=== PATIENT | male | born 1995 | race African-American/Black ===

== ENCOUNTER 2017-06-01 07:47 | Emergency (ER) | payer OTHER ==
[2017-06-01] MEDS ORDERED: ONDANSETRON HCL INJ/PF 4 MG/2 ML SDV IV ONE (08:12)
--- NOTE | 2017-06-01 08:19 | ER Document Report ---
ED General - General Chief Complaint: Nausea/Vomiting Stated Complaint: WEAKNESS Time Seen by Provider: 06/01/17 08:03 TRAVEL OUTSIDE OF THE [place] IN LAST 30 DAYS: No - HPI Notes: Patient is a 21-year-old male with no significant past medical history presents the ED complaining of nausea, vomiting, abdominal pain x2-3 days. Pt states that he the n/v occurs a few times per day. He is still able to eat, but food does make his sx's worse at times. The abd pain is to his RUQ and will radiate towards his back. Pain is described as sharp and occ cramping. Pt states that he has had 1-2 loose stools. He is still urinating normal per patient. Pt has not had any surgeries to his abdomen. He has been using some otc meds with minimal relief. Pt not aware of any new foods/substances that he ate/drank. + smoking. Denies drug or excessive etoh intake. Denies any headache, fever, neck pain, URI, sore throat, chest pain, palpitations, syncope, cough, shortness of breath, wheeze, dyspnea, urinary retention, dysuria, hematuria, melena/hematochezia/hematemesis, acholic stool, or rash. - Related Data Allergies/Adverse Reactions: shellfish derived Allergy (Severe, Verified 06/01/17 07:51) Dyspnea acetaminophen [From Vicodin] Allergy (Verified 06/01/17 07:51) hydrocodone [From Vicodin] Allergy (Verified 06/01/17 07:51) Past Medical History - General Information source: Patient - Social History Smoking Status: Current Every Day Smoker Family History: Reviewed & Not Pertinent Neurological Medical History: Reports: Hx Seizures Renal/ Medical History: Denies: Hx Peritoneal Dialysis - Immunizations Immunizations up to date: Yes Hx Diphtheria, Pertussis, Tetanus Vaccination: Yes - unknown Review of Systems - Review of Systems Notes: REVIEW OF SYSTEMS: CONSTITUTIONAL : Denies fever, chills, or sweats. Denies recent illness. EENT: Denies eye, ear, throat, or mouth pain or symptoms. Denies nasal or sinus congestion or discharge. Denies throat, tongue, or mouth swelling or difficulty swallowing. CARDIOVASCULAR: Denies chest pain. Denies palpitations or racing or irregular heart beat. Denies ankle edema. RESPIRATORY: Denies cough, cold, or chest congestion. Denies shortness of breath, difficulty breathing, or wheezing. GASTROINTESTINAL: see hpi GENITOURINARY: Denies difficulty urinating, painful urination, burning, frequency, blood in urine, or discharge. MUSCULOSKELETAL: Denies back or neck pain or stiffness. Denies joint pain or swelling. SKIN: Denies rash, lesions or sores. NEUROLOGICAL: Denies confusion or altered mental status. Denies passing out or loss of consciousness. Denies dizziness or lightheadedness. Denies headache. Denies weakness or paralysis or loss of use of either side. Denies problems with gait or speech. Denies sensory loss, numbness, or tingling. ALL OTHER SYSTEMS REVIEWED AND NEGATIVE. Dictation was performed using [employer] voice recognition software Physical Exam - Vital signs Vitals: Temp Pulse Resp BP Pulse Ox 98.1 F 66 16 121/72 100 06/01/17 07:51 06/01/17 07:51 06/01/17 07:51 06/01/17 07:51 06/01/17 07:51 Notes: PHYSICAL EXAMINATION: GENERAL: Well-appearing, well-nourished and in no acute distress. EYES: Pupils equal round and reactive to light, extraocular movements intact, sclera anicteric, conjunctiva are normal. ENT: Nares patent and without discharge. oropharynx clear without exudates. No tonsilar hypertrophy or erythema. Moist mucous membranes. No sinus tenderness. NECK: Normal range of motion, supple without lymphadenopathy. No rigidity/ meningismus. LUNGS: Breath sounds clear to auscultation bilaterally and equal. No wheezes rales or rhonchi. HEART: Regular rate and rhythm without murmurs, rubs, gallops. ABDOMEN: Soft, nondistended abdomen. No masses appreciated. Normal bowel sounds present. No CVA tenderness bilaterally. + tenderness to the RUQ/Curtis sign. + mild rebound and guarding for the RUQ. No obvious hernia, abrasion, laceration, or any ascites noted. : no lesions, ulcerations, or masses noted. No discharge. Non-tender. No hernia. Musculoskeletal: LE's b/l: FROM to passive/active. Strength 5+/5. Extremities: No cyanosis, clubbing, or edema b/l. Peripheral pulses 2+. Capillary refill less than 3 seconds. NEUROLOGICAL: Cranial nerves grossly intact. Normal speech, normal gait. Normal sensory, motor exams PSYCH: Normal mood, normal affect. SKIN: Warm, Dry, normal turgor, no rashes or lesions noted. Course - Re-evaluation Re-evalutation: 06/01/17 13:23 Patient is an afebrile, well-hydrated, 22-year-old male who presents the ED with nausea, vomiting, chlamydia/gonorrhea. Vitals are stable. PE otherwise unremarkable. CBC, CMP, lipase are unremarkable for acute pathology. Urinalysis showed some bacteria and urinary Chlamydia/gonorrhea was positive. An ultrasound of the right upper quadrant did show a possible stone in the neck of the gallbladder which patient will have evaluated as an outpatient (with gen surg) as there is no acute cholecystitis/infection. Zithromax 1 g given p.o. today along with Rocephin 250 mg. Zofran, toradol, and fluids were also given. Pt tolerating PO intake. Patient advised to continue follow-up with the health department. Conservative measures otherwise for symptoms. Safe sexual practices reviewed. Recheck with your PCM this week. Return to the ED with any worsening/concerning symptoms otherwise as reviewed discharge. Patient is in agreement. Low suspicion/risk for acute appendicitis, bowel obstruction, acute cholecystitis, perforated diverticulitis, incarcerated hernia, pancreatitis, perforated ulcer, peritonitis, sepsis, testicular torsion, or other systemic emergent condition at this time. Patient is aware that his condition can change from initial presentation and he needs to monitor symptoms closely and seek medical attention if any acute changes. - Vital Signs Vital signs: Temp Pulse Resp BP Pulse Ox 97.5 F 54 L 16 127/63 H 100 06/01/17 10:59 06/01/17 10:59 06/01/17 07:51 06/01/17 10:59 06/01/17 10:59 - Laboratory Result Diagrams: 06/01/17 08:44 06/01/17 09:24 Laboratory results interpreted by me: 06/01/17 06/01/17 06/01/17 08:44 08:45 11:00 RBC 5.70 H RDW 14.2 H Ur Leukocyte Esterase SMALL H Chlamydia DNA (PCR) DETECTED H N.gonorrhoeae DNA (PCR) DETECTED H Discharge - Discharge Clinical Impression: Chlamydia, Gonorrhea, Gallbladder stone with nonacute cholecystitis Nausea & vomiting Qualifiers: Vomiting type: unspecified Vomiting Intractability: non-intractable Qualified Code(s): R11.2 - Nausea with vomiting, unspecified Condition: Stable Disposition: HOME, SELF-CARE Instructions: Chlamydia ([facility]), Gallbladder Disease ([facility]), Gonorrhea ([facility]), Low- Fat Diet ([facility]), Intravenous (IV) Fluids ([facility]), Azithromycin ([facility]) Additional Instructions: Push fluids (i.e. water, cranberry juice) Proper hygenic technique Keep the skin clean Safe sexual practices with condoms everytime Tylenol/ibuprofen as needed May use over the counter AZO for burning with urination Check in with the health department this week for further testing* Return immediately if symptoms worsen F/u with your PCM this week for a recheck Schedule a consult with the General Surgeon for further evaluation of your suspected gallbladder stone Consider consult with a Urologist for ongoing/worsening symptoms. Return to the ED with any development of RICHARDSON/fever, trouble with vision, eye redness, worsening pain, urethral discharge, urinary retention, blood in the urine, flank pain, abdominal pain, n/v, blood in stool/vomit/urine, Chest Pain, shortness of breath, joint pains, trouble breathing, or any other worsening/ concerning symptoms as needed otherwise. Prescriptions: Ondansetron [Zofran Odt 4 mg Tablet] 1 - 2 tab PO Q4H PRN #15 tab.rapdis PRN Reason: For Nausea/Vomiting Forms: Elevated Blood Pressure Referrals: JEIMY KINCAID MD [ACTIVE STAFF] - Follow up as needed [facility] [Provider Group] - Follow up as needed [facility] [NO LOCAL MD] - Follow up in 3-5 days
--- NOTE | 2017-06-01 08:44 | RADIOLOGY REPORT (SQ) ---
EXAM DESCRIPTION: CHEST PA/LAT COMPLETED DATE/TIME: 06/01/2017 8:27 am REASON FOR STUDY: RUQ abdominal pain, n/v COMPARISON: 2015. TECHNIQUE: Frontal and lateral radiographic views of the chest acquired. NUMBER OF VIEWS: Two view. LIMITATIONS: None. FINDINGS: LUNGS AND PLEURA: No opacities, masses or pneumothorax. No pleural effusion. MEDIASTINUM AND HILAR STRUCTURES: No masses or contour abnormalities. HEART AND VASCULAR STRUCTURES: Heart normal size. No evidence for failure. BONES: No acute findings. HARDWARE: None in the chest. OTHER: No other significant finding. IMPRESSION: NO SIGNIFICANT RADIOGRAPHIC FINDING IN THE CHEST. TECHNICAL DOCUMENTATION: JOB ID: [id number] [employer]- All Rights Reserved
[2017-06-01] MEDS: NORMAL SALINE 1000 ML 1,000 ML IV PRN ×2 (08:48→10:18)
[2017-06-01 08:55] LABS: ABSOLUTE BASOPHILS # (AUTO) 0.1 10^3/uL (0.0-0.2); ABSOLUTE EOSINOPHILS # (AUTO) 0.4 10^3/uL (0.0-0.6); ABSOLUTE LYMPHOCYTES (AUTO) 1.5 10^3/uL (0.5-4.7); ABSOLUTE MONOCYTES (AUTO) 0.8 10^3/uL (0.1-1.4); ABSOLUTE NEUT (AUTO) 5.2 10^3/uL (1.7-8.2); BASOPHILS % (AUTO) 1.1 % (0-2); HEMATOCRIT 49.2 % (37.9-51.0); HEMOGLOBIN 16.4 g/dL (13.5-17.0); LYMPHOCYTES % (AUTO) 18.8 % (13-45); MEAN CORPUSCULAR HEMOGLOBIN 28.8 pg (27.0-33.4); MEAN CORPUSCULAR HGB CONC 33.4 g/dL (32.0-36.0); MEAN CORPUSCULAR VOLUME 86 fl (80-97); MONOCYTES % (AUTO) 10.5 % (3-13); RED CELL DISTRIBUTION WIDTH 14.2 % (11.5-14.0); SEGMENTED NEUTROPHILS % (AUTO) 64.6 % (42-78)
[2017-06-01 09:36] LABS: APPEARANCE,URINE CLEAR; BILIRUBIN,URINE NEGATIVE (NEGATIVE); GLUCOSE, URINE NEGATIVE (NEGATIVE); KETONES,URINE NEGATIVE (NEGATIVE); LEUKOCYTE ESTERASE,URINE SMALL (NEGATIVE); NITRITE,URINE NEGATIVE (NEGATIVE); PROTEIN,URINE NEGATIVE (NEGATIVE); URINE SPECIFIC GRAVITY 1.014; UROBILINOGEN,URINE NEGATIVE mg/dL (<2.0)
[2017-06-01 09:57] LABS: ALANINE AMINOTRANSFERASE 23 U/L (21-72); ALBUMIN 3.8 g/dL (3.5-5.0); ALKALINE PHOSPHATASE 50 U/L (38-126); ANION GAP 8 (5-19); ASPARTATE AMINO TRANSFERASE 25 U/L (17-59); BILIRUBIN,DIRECT 0.3 mg/dL (0.0-0.4); BILIRUBIN,TOTAL 0.9 mg/dL (0.2-1.3); BLOOD UREA NITROGEN 11 mg/dL (7-20); CALCIUM 9.4 mg/dL (8.4-10.2); CARBON DIOXIDE 26 mmol/L (22-30); CHLORIDE 107 mmol/L (98-107); CREATININE RESULT 0.97 mg/dL (0.52-1.25); GLUCOSE 90 mg/dL (75-110); LIPASE 176.4 U/L (23-300); POTASSIUM 4.5 mmol/L (3.6-5.0); SODIUM 141.1 mmol/L (137-145); TOTAL PROTEIN 6.5 g/dL (6.3-8.2)
--- NOTE | 2017-06-01 10:24 | RADIOLOGY REPORT (SQ) ---
EXAM DESCRIPTION: U/S ABDOMEN LIMITED W/O DOP COMPLETED DATE/TIME: 06/01/2017 9:56 am REASON FOR STUDY: RUQ abdominal pain, n/v COMPARISON: None. TECHNIQUE: Dynamic and static grayscale images acquired of the abdomen and recorded on PACS. Additio nal selected color Doppler and spectral images recorded. LIMITATIONS: None. FINDINGS: PANCREAS: No masses. Visualized pancreatic duct normal caliber. LIVER: No masses. Echotexture normal. LIVER VASCULATURE: Normal directional flow of the main portal vein and hepatic veins. GALLBLADDER: Echogenic shadowing focus near the neck of the gallbladder may represent a stone. No wa ll thickening or surrounding fluid, however. ULTRASOUND-DETECTED MCINTYRE'S SIGN: Negative. INTRAHEPATIC DUCTS AND COMMON DUCT: CBD and intrahepatic ducts normal caliber. No filling defects. INFERIOR VENA CAVA: Normal flow. AORTA: No aneurysm. RIGHT KIDNEY: Normal size. Normal echogenicity. No solid or suspicious masses. No hydronephrosis. No calcifications. PERITONEAL AND RIGHT PLEURAL SPACE: No ascites or effusions. OTHER: No other significant findings. IMPRESSION: 1. Possible stone in the gallbladder neck. No gross sonographic evidence of acute donald cystitis, however. TECHNICAL DOCUMENTATION: JOB ID: [id number] [employer]- All Rights Reserved
[2017-06-01] MEDS ORDERED: KETOROLAC TROMETHAMINE INJ/PF 30 MG/1 ML SDV IV ONE (10:41)
[2017-06-01] MEDS ORDERED: AZITHROMYCIN 250 MG TABLET PO ONE (12:35)
[2017-06-01] MEDS ORDERED: CEFTRIAXONE INJ 1000 MG VIAL IV ONE (12:35)
[2017-06-01 12:51] LABS: CHLAM PCR DETECTED (NOT DETECT)
[2017-06-01 14:00] VITALS: BP 121/74
== END 2017-06-01 14:08 | disposition home or self-care (01) ==
LOC: ER 07:47
DX: A74.9 Chlamydial infection, unspecified (principal); A54.9 Gonococcal infection, unspecified; K80.18 Calculus of gallbladder with other cholecystitis without obstruction; R11.2 Nausea with vomiting, unspecified; R53.1 Weakness; R10.9 Unspecified abdominal pain; R10.11 Right upper quadrant pain; F17.200 Nicotine dependence, unspecified, uncomplicated; Z88.6 Allergy status to analgesic agent; Z91.013 Allergy to seafood
CPT/HCPCS: 99284; 96361; 96375; 96365; 36415; 83690; 85025; 80053; 81001; 87491; 87591; 71020; 76705; J1885; J0696; J2405; J7030

== ENCOUNTER 2018-03-12 07:01 | Emergency (ER) | payer OTHER ==
[2018-03-12 07:13] VITALS: BP 117/70
--- NOTE | 2018-03-12 08:37 | ER Document Report ---
HPI - HPI Patient complains to provider of: asthma Onset: Other - 4 days ago Onset/Duration: Gone Quality of pain: No pain Pain Level: Denies Context: Patient states he has a history of asthma and recently started working in a different location at the same job. Patient states that his work causes his asthma to flare up and he become symptomatic. Patient states that his employer is requesting a note stating that he needs to stop working because of his asthma symptoms. Patient presently denies any cough, wheezing or shortness of breath. Patient denies any fever. Patient states he last had symptoms 4 days ago. Associated Symptoms: None. denies: Nonproductive cough, Fever Exacerbated by: Denies Relieved by: Denies Similar symptoms previously: Yes Recently seen / treated by doctor: No - ROS ROS below otherwise negative: Yes Systems Reviewed and Negative: Yes All other systems reviewed and negative - CONSTITUTIONAL Constitutional: DENIES: Fever, Chills - CARDIOVASCULAR Cardiovascular: DENIES: Chest pain - RESPIRATORY Respiratory: DENIES: Coughing - GASTROINTESTINAL Gastrointestinal: DENIES: Nausea, Patient vomiting - MUSCULOSKELETAL Musculoskeletal: DENIES: Extremity pain - DERM Skin Color: Normal Skin Problems: None Past Medical History - General Information source: Patient - Social History Smoking Status: Current Some Day Smoker Chew tobacco use (# tins/day): No Frequency of alcohol use: None Drug Abuse: None Occupation: Housekeeping Family History: Reviewed & Not Pertinent Patient has suicidal ideation: No Patient has homicidal ideation: No Pulmonary Medical History: Reports: Hx Asthma Neurological Medical History: Reports: Hx Seizures - no medications Renal/ Medical History: Denies: Hx Peritoneal Dialysis Surgical Hx: Negative - Immunizations Immunizations up to date: Yes Hx Diphtheria, Pertussis, Tetanus Vaccination: Yes - unknown Vertical Provider Document - CONSTITUTIONAL Agree With Documented VS: Yes Exam Limitations: No Limitations General Appearance: WD/WN, No Apparent Distress - INFECTION CONTROL TRAVEL OUTSIDE OF THE [place] IN LAST 30 DAYS: No - HEENT HEENT: Atraumatic, Normal ENT Exam, Normocephalic - NECK Neck: Normal Inspection, Supple - RESPIRATORY Respiratory: Breath Sounds Normal, No Respiratory Distress, Chest Non-Tender. negative: Rales, Rhonchi, Wheezing - CARDIOVASCULAR Cardiovascular: Regular Rate, Regular Rhythm, No Murmur - BACK Back: Normal Inspection - MUSCULOSKELETAL/EXTREMETIES Musculoskeletal/Extremeties: MAEW - NEURO Level of Consciousness: Awake, Alert, Appropriate Motor/Sensory: No Motor Deficit - DERM Integumentary: Warm, Dry, No Rash Course - Vital Signs Vital signs: Temp Pulse Resp BP Pulse Ox 97.2 F 63 18 117/70 99 03/12/18 07:09 03/12/18 07:09 03/12/18 07:09 03/12/18 07:09 03/12/18 07:09 Discharge - Discharge Clinical Impression: History of asthma Condition: Stable Disposition: HOME, SELF-CARE Instructions: Asthma ([facility]), Inhaled Bronchodilators ([facility]) Additional Instructions: Return immediately for any new or worsening symptoms Followup with your primary care provider, call tomorrow to make a followup appointment Avoid triggers that may aggravate your asthma Stop smoking Prescriptions: Albuterol Sulfate [Ventolin Hfa] 2 puff IH Q4HP PRN #17 gm PRN Reason: Albuterol Sulfate [Ventolin 0.083% Neb 2.5 mg/3 ml Ampul] 1 vial NEB Q4 PRN #25 vial PRN Reason: Forms: Smoking Cessation Education, Return to Work Referrals: [facility] [Provider Group] - Follow up as needed
== END 2018-03-12 08:47 | disposition home or self-care (01) ==
LOC: ER 07:01
DX: J45.909 Unspecified asthma, uncomplicated (principal); F17.200 Nicotine dependence, unspecified, uncomplicated
CPT/HCPCS: 99284

== ENCOUNTER 2018-11-04 08:32 | Emergency (ER) | payer OTHER ==
[2018-11-04] MEDS ORDERED: KETOROLAC TROMETHAMINE INJ/PF 30 MG/1 ML SDV IV ONE (09:42)
[2018-11-04] MEDS ORDERED: FENTANYL CITRATE INJ/PF 100 MCG/2 ML AMPUL IV ONE (09:42)
[2018-11-04] MEDS ORDERED: NORMAL SALINE 1000 ML 1,000 ML IV ONE (09:42)
[2018-11-04] MEDS ORDERED: PROCHLORPERAZINE EDISYLATE INJ 10 MG/2 ML VIAL IV ONE (09:44)
--- NOTE | 2018-11-04 09:45 | ER Document Report ---
ED Medical Screen (RME) - General Chief Complaint: Abdominal Pain Stated Complaint: ABDOMINAL PAIN Time Seen by Provider: 11/04/18 09:37 Notes: 23 years old male with history of chronic abdominal pain with periodic exacerbation of unknown cause presents today with sudden onset of abdominal pain since yesterday. Gradually getting worse over the left lower quadrant. Associated with nausea no vomiting. Denies any diarrhea or constipation. Denies any dysuria frequency or urgency. On examination-clean male seems to be in moderate to severe pain. Sharp tenderness over the left side of the abdomen noted. TRAVEL OUTSIDE OF THE [place] IN LAST 30 DAYS: No - Related Data Allergies/Adverse Reactions: shellfish derived Allergy (Severe, Verified 11/04/18 08:34) Dyspnea acetaminophen [From Vicodin] Allergy (Verified 11/04/18 08:34) hydrocodone [From Vicodin] Allergy (Verified 11/04/18 08:34) Past Medical History - Social History Chew tobacco use (# tins/day): No Drug Abuse: None Pulmonary Medical History: Reports: Hx Asthma Neurological Medical History: Reports: Hx Seizures - no medications Renal/ Medical History: Denies: Hx Peritoneal Dialysis - Immunizations Immunizations up to date: Yes Hx Diphtheria, Pertussis, Tetanus Vaccination: Yes - unknown Physical Exam - Vital signs Vitals: Temp Pulse Resp BP Pulse Ox 97.2 F 102 H 20 135/75 H 100 11/04/18 08:38 11/04/18 08:38 11/04/18 08:38 11/04/18 08:38 11/04/18 08:38 Course - Vital Signs Vital signs: Temp Pulse Resp BP Pulse Ox 97.2 F 102 H 20 135/75 H 100 11/04/18 08:38 11/04/18 08:38 11/04/18 08:38 11/04/18 08:38 11/04/18 08:38
[2018-11-04 10:25] LABS: ABSOLUTE BASOPHILS # (AUTO) 0.1 10^3/uL (0.0-0.2); ABSOLUTE EOSINOPHILS # (AUTO) 0.1 10^3/uL (0.0-0.6); ABSOLUTE LYMPHOCYTES (AUTO) 1.1 10^3/uL (0.5-4.7); ABSOLUTE MONOCYTES (AUTO) 0.6 10^3/uL (0.1-1.4); ABSOLUTE NEUT (AUTO) 6.9 10^3/uL (1.7-8.2); BASOPHILS % (AUTO) 0.7 % (0-2); EOSINOPHILS % (AUTO) 0.7 % (0-6); HEMATOCRIT 46.6 % (37.9-51.0); LYMPHOCYTES % (AUTO) 12.7 % (13-45); MEAN CORPUSCULAR HEMOGLOBIN 29.1 pg (27.0-33.4); MEAN CORPUSCULAR HGB CONC 34.3 g/dL (32.0-36.0); MEAN CORPUSCULAR VOLUME 85 fl (80-97); MONOCYTES % (AUTO) 6.8 % (3-13); PLATELET COUNT 254 10^3/uL (150-450); RED BLOOD COUNT 5.49 10^6/uL (4.35-5.55); RED CELL DISTRIBUTION WIDTH 13.5 % (11.5-14.0); SEGMENTED NEUTROPHILS % (AUTO) 79.1 % (42-78); TOTAL CELLS COUNTED % (AUTO) 100 %; WHITE BLOOD COUNT 8.8 10^3/uL (4.0-10.5)
[2018-11-04 10:44] LABS: ALANINE AMINOTRANSFERASE 34 U/L (21-72); ALBUMIN 5.2 g/dL (3.5-5.0); ALKALINE PHOSPHATASE 65 U/L (38-126); ANION GAP 12 (5-19); ASPARTATE AMINO TRANSFERASE 41 U/L (17-59); BILIRUBIN,DIRECT 0.3 mg/dL (0.0-0.4); BLOOD UREA NITROGEN 16 mg/dL (7-20); CALCIUM 10.3 mg/dL (8.4-10.2); CARBON DIOXIDE 26 mmol/L (22-30); CHLORIDE 105 mmol/L (98-107); GLUCOSE 85 mg/dL (75-110); SODIUM 143.3 mmol/L (137-145); TOTAL PROTEIN 8.6 g/dL (6.3-8.2)
[2018-11-04] MEDS ORDERED: DIPHENHYDRAMINE HCL 50 MG/ML VIAL ONE (10:48)
[2018-11-04] MEDS ORDERED: DIPHENHYDRAMINE HCL 50 MG/ML VIAL IV ONE ×2 (10:51)
--- NOTE | 2018-11-04 11:01 | ER Document Report ---
ED GI/ - General Chief Complaint: Abdominal Pain Stated Complaint: ABDOMINAL PAIN Time Seen by Provider: 11/04/18 09:37 Notes: She is here for pain in the left upper quadrant of his abdomen since yesterday. He has had this about 3 times in the recent past, most recently about 2 weeks ago. He says he was told he had kidney stones on previous occasions. Patient says he vomited a couple of times yesterday, but today he denies any nausea, vomiting, or diarrhea. Denies any UTI symptoms. Denies blood in urine. Denies fever. In triage, patient was given fentanyl, Toradol, and Compazine, all IV. He is now having restlessness and cannot sit still on the stretcher. I am going to give the patient 25 mg of Benadryl IV in case this is an episode of akathisia from the Compazine or 1 of his other medications. TRAVEL OUTSIDE OF THE [place] IN LAST 30 DAYS: No - Related Data Allergies/Adverse Reactions: shellfish derived Allergy (Severe, Verified 11/04/18 08:34) Dyspnea Past Medical History - Social History Smoking Status: Never Smoker Chew tobacco use (# tins/day): No Drug Abuse: None Family History: Reviewed & Not Pertinent Patient has suicidal ideation: No Patient has homicidal ideation: No Pulmonary Medical History: Reports: Hx Asthma Neurological Medical History: Reports: Hx Seizures - no medications Surgical Hx: Negative Past Surgical History: Denies: Hx Abdominal Surgery - Immunizations Immunizations up to date: Yes Hx Diphtheria, Pertussis, Tetanus Vaccination: Yes - unknown Review of Systems - Review of Systems Notes: REVIEW OF SYSTEMS: CONSTITUTIONAL : Denies fever. EENT: Denies eye, ear, nose or mouth or throat pain or other symptoms. CARDIOVASCULAR: Denies chest pain. RESPIRATORY: Denies cough, chest congestion, or shortness of breath. GASTROINTESTINAL: Denies nausea, vomiting, or diarrhea. See HPI. GENITOURINARY: Denies difficulty or painful urinating, urinary frequency, blood in urine. See HPI. MUSCULOSKELETAL: Denies back or neck pain. Denies joint pain or swelling. SKIN: Denies rash or skin lesions. NEUROLOGICAL: Denies LOC or altered mental status. Denies headache. Denies sensory loss or motor deficits. ALL OTHER SYSTEMS REVIEWED AND NEGATIVE. Physical Exam - Vital signs Vitals: Temp Pulse Resp BP Pulse Ox 97.2 F 102 H 20 135/75 H 100 11/04/18 08:38 11/04/18 08:38 11/04/18 08:38 11/04/18 08:38 11/04/18 08:38 Interpretation: Normal Notes: PHYSICAL EXAMINATION: GENERAL: Well-appearing, in no acute distress. HEAD: Atraumatic, normocephalic. EYES: Pupils equal round and reactive to light, extraocular movements intact. ENT: oropharynx clear without exudates. Moist mucous membranes. NECK: Normal range of motion, supple. LUNGS: Breath sounds clear and equal bilaterally. HEART: Regular rate and rhythm without murmurs. ABDOMEN: Soft, nontender. No guarding or rebound. No masses. Denies recent fall or injury to his abdomen. BACK: No tenderness throughout entire back. EXTREMITIES: Normal range of motion without pain. NEUROLOGICAL: Normal speech, normal gait. Normal sensory, motor, and reflex exams. Awake, alert, and oriented x3. Cranial nerves normal. PSYCH: Normal mood, normal affect. SKIN: Warm, dry, no rashes. Course - Re-evaluation Re-evalutation: 11/04/18 14:39 Patient's workup is essentially normal. He does have ketones of 80 in his urine, but otherwise his labs are essentially normal. Also, his CT scan is normal, as well. His findings are not supportive of any serious cause for the patient's pain. Patient is anxious to leave and I am going to discharge him with a prescription for Bentyl to take as needed. - Vital Signs Vital signs: Temp Pulse Resp BP Pulse Ox 97.4 F 62 14 122/62 100 11/04/18 11:48 11/04/18 11:48 11/04/18 11:48 11/04/18 11:48 11/04/18 11:48 - Laboratory Result Diagrams: 11/04/18 09:55 11/04/18 09:55 Laboratory results interpreted by me: 11/04/18 11/04/18 11/04/18 09:55 09:55 10:38 Seg Neutrophils % 79.1 H Lymphocytes % 12.7 L Calcium 10.3 H Total Bilirubin 2.0 H Total Protein 8.6 H Albumin 5.2 H Urine Protein 30 H Urine Ketones 80 H Urine Urobilinogen 4.0 H Urine Ascorbic Acid 20 H - Diagnostic Test Radiology reviewed: Image reviewed, Reports reviewed - CT scan of the abdomen is normal. Patient had oral contrast but not IV contrast because the IV would not function properly, the patient says he may be allergic to the contrast, causing him to have arm pain when he had it done once in the past. Discharge - Discharge Clinical Impression: Abdominal pain Condition: Stable Disposition: HOME, SELF-CARE Additional Instructions: ABDOMINAL PAIN: There are many causes of abdominal pain. Pain can mean a serious problem requiring surgery (such as appendicitis). It can also be an innocent problem that goes away on its own (such as a viral infection). Often, time must pass to determine the cause of pain. The physician does not feel that hospitalization is necessary, at present. Things may change within the next 24 hours. Call the doctor or come back for re- examination if any problems occur, such as: (1) Pain that becomes more severe, steady, or becomes concentrated in one specific area. Also, pain that is more severe with movement or coughing. (2) Vomiting that persists or becomes more frequent. (3) Blood in the vomitus, urine, or bowel movements. Blood in the stool may have a tarry or black appearance. (4) Shaking chills or fever greater than 100 degrees F. (5) The abdomen becomes more distended or swollen. (6) Bowel movements cease. (7) Failure to improve as expected. NORMAL EXAM AND WORKUP: At this time, your examination and workup show no significant abnormality. No significant abnormal physical findings are noted. All laboratory, EKG, and imaging (x-ray, CT scans, ultrasound) studies that were ordered show no signific ant abnormality. Although your examination and all studies that were ordered showed no significant abnormal finding, there are no examinations and no studies that are 100% accurate. There is always the possibility that some abnormality could exist and not be detected with physical examination or within the limits and capabilities of laboratory and other studies. You should return or follow up as you were instructed on your visit today for further evaluation if your symptoms do not resolve. TORADOL INJECTION: You have been given an injection of ketorolac tromethamine (Toradol). This is an excellent, safe drug for pain control. It also has potent antiinflammatory action. You should have significant pain relief within about one hour. Toradol is not addicting and is non-sedating. It does not interfere with driving or work. Call or return if you develop itching, hives, shortness of breath, or rash. PAIN MEDICATION INJECTION: You have received an injection of a pain medication. You should experience significant pain relief within 45 minutes. This drug is a narcotic -- it will impair your judgement, slow your reaction time and make you sleepy (as well as relieve your pain). Narcotics also can cause nausea. You should not drive, work with machinery, or perform any task requiring mental alertness until all effects of the medication are gone -- six to eight hours. Do not take any alcohol, or sedatives, and do not take any other medication without checking with your physician. ANTINAUSEA MEDICATION: You have been given a medication to suppress nausea and vomiting. This type of medication can be given as a shot, pill, or suppository. It will usually last for many hours. Pills and shots usually last six to eight hours, suppositories last about 12 hours. For the typical illness, only one or two doses of the medication may be necessary. Mild lightheadedness may occur. This type of medicine can cause drowsiness. Do not drive or operate dangerous machinery while under its influence. Do not mix with alcohol. See your doctor at once if you have muscle spasms or tightness, or uncontrollable motions (particularly of the neck, mouth, or jaw). Persistent vomiting or severe lightheadedness should also be evaluated by the physician. ANTISPASMODICS: You have been given a prescription for an antispasmodic medicine. This type of drug is used to decrease cramping and pain in the intestines. It is also used to decrease secretion of internal fluids (such as stomach acid in ulcer disease or pancreatic juice in pancreas disease). This medicine may cause drowsiness, especially with the first dose. Do not operate machinery or drive until all side effects have resolved. Do not combine with alcohol. Other common side effects include dry mouth and eyes. In older persons, antispasmodics can occasionally cause urinary retention, constipation, or trouble focusing the eyes. Glaucoma may be worsened by this medicine. FOLLOW-UP CARE: If you have been referred to a physician for follow-up care, call the physicians office for an appointment as you were instructed or within the next two days. If you experience worsening or a significant change in your symptoms, notify the physician immediately or return to the Emergency Department at any time for re-evaluation. Prescriptions: Dicyclomine HCl [Bentyl 20 mg Tablet] 40 mg PO QIDP PRN #20 tablet PRN Reason:
[2018-11-04 11:35] LABS: APPEARANCE,URINE CLEAR; BILIRUBIN,URINE NEGATIVE (NEGATIVE); COLOR,URINE YELLOW; GLUCOSE, URINE NEGATIVE (NEGATIVE); KETONES,URINE 80 mg/dL (NEGATIVE); LEUKOCYTE ESTERASE,URINE NEGATIVE (NEGATIVE); NITRITE,URINE NEGATIVE (NEGATIVE); PROTEIN,URINE 30 mg/dL (NEGATIVE)
[2018-11-04 11:49] VITALS: BP 122/62
[2018-11-04 11:52] LABS: URINE AMPHETAMINES SCREEN NEGATIVE; URINE BARBITURATES SCREEN NEGATIVE; URINE BENZODIAZEPINES SCREEN NEGATIVE; URINE COCAINE SCREEN NEGATIVE; URINE MARIJUANA (THC) SCREEN UNCONFIRMED POSITIVE; URINE METHADONE SCREEN NEGATIVE; URINE PHENCYCLIDINE SCREEN NEGATIVE
--- NOTE | 2018-11-04 14:16 | RADIOLOGY REPORT (SQ) ---
EXAM DESCRIPTION: CT ABD/PELVIS ORAL ONLY COMPLETED DATE/TIME: 11/04/2018 1:42 pm REASON FOR STUDY: Acute abdominal pain rule out obstruction COMPARISON: 01/04/2013 TECHNIQUE: CT scan of the abdomen and pelvis performed without intravenous or oral contrast. Images reviewed with lung, soft tissue, and bone windows. Reconstructed coronal and sagittal MPR images revi ewed. All images stored on PACS. All CT scanners at this facility use dose modulation, iterative reconstruction, and/or weight based d osing when appropriate to reduce radiation dose to as low as reasonably achievable (ALARA). [facility]: Dose Right [facility]: CareDose [facility]: Dose Right [facility]: Teradose 4D [facility]: Smart Olo RADIATION DOSE: CT Rad equipment meets quality standard of care and radiation dose reduction techniq ues were employed. CTDIvol: 4.9 mGy. DLP: 250 mGy-cm.mGy. LIMITATIONS: None. FINDINGS: LOWER CHEST: No significant findings. No nodules or infiltrates. NON-CONTRASTED LIVER, SPLEEN, ADRENALS: Evaluation limited by lack of IV contrast. No identified sign ificant masses. PANCREAS: No masses. No peripancreatic inflammatory changes. GALLBLADDER: No identified stones by CT criteria. No inflammatory changes to suggest cholecystitis. RIGHT KIDNEY AND URETER: No suspicious masses. Assessment limited by lack of IV contrast. No signif icant calcifications. No hydronephrosis or hydroureter. LEFT KIDNEY AND URETER: No suspicious masses. Assessment limited by lack of IV contrast. No signifi cant calcifications. No hydronephrosis or hydroureter. AORTA AND RETROPERITONEUM: No aneurysm. No retroperitoneal masses or adenopathy. BOWEL AND PERITONEAL CAVITY: No obvious masses or inflammatory changes. No free fluid. APPENDIX: Normal. PELVIS, BLADDER, AND ABDOMINAL WALL:No abnormal masses. No free fluid. Bladder normal. BONES: No significant findings. OTHER: No other significant finding. IMPRESSION: No noncontrast CT findings to explain abdominal pain. No evidence of bowel obstruction following administration of oral contrast. COMMENT: Quality ID # [id number]: Final reports with documentation of one or more dose reduction techniques (e.g., Automated exposure control, adjustment of the mA and/or kV according to patient size, use of iterative reconstruction technique) TECHNICAL DOCUMENTATION: JOB ID: [id number] [employer]- All Rights Reserved Reading location - IP/workstation name: [email or web address]
== END 2018-11-04 14:58 | disposition home or self-care (01) ==
LOC: ER 08:32
DX: R10.9 Unspecified abdominal pain (principal); R11.10 Vomiting, unspecified; Z79.899 Other long term (current) drug therapy; J45.909 Unspecified asthma, uncomplicated
CPT/HCPCS: 99284; 96361; 96374; 96375; 36415; 87040; 83690; 85025; 80053; 81001; 80307; 74176; J1200; J3010; J1885; J0780; J7030

== ENCOUNTER 2019-05-18 09:05 | Emergency (ER) | payer OTHER ==
[2019-05-18] MEDS ORDERED: IBUPROFEN 600 MG TABLET PO ONE (09:48)
[2019-05-18] MEDS ORDERED: OXYCODONE-ACETAMINOPHEN 5-325 MG TABLET PO ONE (09:48)
--- NOTE | 2019-05-18 10:26 | ER Document Report ---
HPI - HPI Time Seen by Provider: 05/18/19 09:40 Pain Level: 5 Notes: Patient is an otherwise healthy 23-year-old male presented emergency department chief complaint of right foot and ankle pain. Patient reports he was working yesterday when a tractor tire up the back of his ankle causing his ankle to be crushed into concrete. He states he has not been able to bear weight since then. - CONSTITUTIONAL Constitutional: DENIES: Fever, Chills - EENT EENT: DENIES: Sore Throat, Ear Pain, Eye problems - NEURO Neurology: DENIES: Headache, Weakness, Vision blurred, Dizzinesss / Vertigo - CARDIOVASCULAR Cardiovascular: DENIES: Chest pain - RESPIRATORY Respiratory: DENIES: Trouble Breathing, Coughing - GASTROINTESTINAL Gastrointestinal: DENIES: Abdominal Pain, Black / Bloody Stools - URINARY Urinary: DENIES: Dysuria, Urgency, Frequency - MUSCULOSKELETAL Musculoskeletal: REPORTS: Extremity pain - right ankle/foot Past Medical History - General Information source: Patient - Social History Smoking Status: Current Every Day Smoker Chew tobacco use (# tins/day): No Frequency of alcohol use: None Drug Abuse: None Family History: Reviewed & Not Pertinent Patient has suicidal ideation: No Patient has homicidal ideation: No Pulmonary Medical History: Reports: Hx Asthma Neurological Medical History: Reports: Hx Seizures - no medications Renal/ Medical History: Denies: Hx Peritoneal Dialysis GI Medical History: Reports: Hx Gastroesophageal Reflux Disease Past Surgical History: Denies: Hx Abdominal Surgery - Immunizations Immunizations up to date: Yes Hx Diphtheria, Pertussis, Tetanus Vaccination: Yes - unknown Vertical Provider Document - CONSTITUTIONAL Notes: PHYSICAL EXAMINATION: GENERAL: Well-appearing, well-nourished and in no acute distress. HEAD: Atraumatic, normocephalic. EYES: Pupils equal round extraocular movements intact, conjunctiva are normal. ENT: Nares patent NECK: Normal range of motion LUNGS: No respiratory distress Musculoskeletal: Mild swelling with ecchymosis noted to right foot and ankle, cap refill less than 3 seconds, strong dorsalis pedis pulse, exquisite tenderness with any palpation over the dorsal surface of the foot as well as the lateral and medial ankle. NEUROLOGICAL: Normal speech. PSYCH: Normal mood, normal affect. SKIN: Warm, Dry, normal turgor, no rashes or lesions noted. - INFECTION CONTROL TRAVEL OUTSIDE OF THE [place] IN LAST 30 DAYS: No Course - Re-evaluation Re-evalutation: Ankle X-Ray 05/18/19 09:43 IMPRESSION: NEGATIVE STUDY OF THE RIGHT ANKLE. NO RADIOGRAPHIC EVIDENCE OF ACUTE INJURY. Foot X-Ray 05/18/19 09:43 IMPRESSION: Small ossific sliver seen on the lateral projection superior to the talus which may represent dorsal talar avulsion fracture. Recommend correlation with point tenderness. No additional evidence of acute bony abnormality. Patient placed in ankle stirrup splint, Tony wrap and crutches. Patient will follow-up with orthopedics. Patient given DC instructions as well as ED return precautions. The patient's emergency department workup and current diagnosis were explained to the patient and or family. Follow-up instructions were provided. Medications if prescribed were discussed. Instructions for when to return to the emergency department including specific worrisome symptoms were discussed with the patient and/or family. - Vital Signs Vital signs: Temp Pulse Resp BP Pulse Ox 97.6 F 78 18 139/103 H 100 05/18/19 09:12 05/18/19 09:12 05/18/19 09:12 05/18/19 09:12 05/18/19 09:12 Procedures - Immobilization Right ankle Pre-Proc Neuro Vasc Exam: Normal Immobilizer type: Tony wrap, Ankle stirrup, Crutches Performed by: PCT Post-Proc Neuro Vasc Exam: Normal Alignment checked and good: Yes Discharge - Discharge Clinical Impression: Fractured tarsal bone Qualifiers: Encounter type: initial encounter Tarsal bone: unspecified tarsal bone Fracture type: closed Fracture alignment: nondisplaced Laterality: right Qualified Code(s): S92.201A - Fracture of unspecified tarsal bone(s) of right foot, init ial encounter for closed fracture Condition: Stable Disposition: HOME, SELF-CARE Additional Instructions: It appears that you have a fracture of the tarsal bone. Please take ibuprofen 600 mg every 6 hours. Take the narcotic pain medication for severe pain only. Ice and elevate, 20 minutes on, 20 minutes off. Follow-up with orthopedics, call them today to schedule an appointment. Use the crutches and maintain a nonweightbearing status until cleared by orthopedics. Prescriptions: Oxycodone HCl/Acetaminophen [Percocet 5-325 mg Tablet] 1 tab PO Q4H PRN #12 tablet PRN Reason: Forms: Special Work Note Referrals: COSME CAO, [ACTIVE STAFF] - Follow up as needed
--- NOTE | 2019-05-18 10:31 | RADIOLOGY REPORT (SQ) ---
EXAM DESCRIPTION: ANKLE RIGHT COMPLETE COMPLETED DATE/TIME: 05/18/2019 10:17 am REASON FOR STUDY: tractor ran over foot/ankle, non-weightbearing COMPARISON: None. NUMBER OF VIEWS: Three views. TECHNIQUE: AP, lateral, and oblique radiographic images acquired of the right ankle. LIMITATIONS: None. FINDINGS: MINERALIZATION: Normal. BONES: No acute fracture or dislocation. No worrisome bone lesions. JOINTS: No effusions. SOFT TISSUES: No soft tissue swelling. No foreign body. OTHER: No other significant finding. IMPRESSION: NEGATIVE STUDY OF THE RIGHT ANKLE. NO RADIOGRAPHIC EVIDENCE OF ACUTE INJURY. TECHNICAL DOCUMENTATION: JOB ID: [id number] [employer]- All Rights Reserved Reading location - IP/workstation name: [email or web address]
--- NOTE | 2019-05-18 10:34 | RADIOLOGY REPORT (SQ) ---
EXAM DESCRIPTION: FOOT RIGHT COMPLETE COMPLETED DATE/TIME: 05/18/2019 10:17 am REASON FOR STUDY: tractor ran over foot/ankle, non-weightbearing COMPARISON: None. NUMBER OF VIEWS: Three views. TECHNIQUE: AP, lateral and oblique radiographic images acquired of the right foot. LIMITATIONS: None. FINDINGS: MINERALIZATION: Normal. BONES: Small ossific sliver seen on the lateral projection superior to the talus. No additional evid ence of fracture. No dislocation. JOINTS: No large effusion. SOFT TISSUES: Dorsal foot soft tissue swelling. OTHER: No other significant finding. IMPRESSION: Small ossific sliver seen on the lateral projection superior to the talus which may repr esent dorsal talar avulsion fracture. Recommend correlation with point tenderness. No additional evidence of acute bony abnormality. TECHNICAL DOCUMENTATION: JOB ID: [id number] [employer]- All Rights Reserved Reading location - IP/workstation name: [email or web address]
[2019-05-18 11:04] VITALS: BP 115/65
== END 2019-05-18 10:55 | disposition home or self-care (01) ==
LOC: ER 09:05
DX: S92.201A Fracture of unspecified tarsal bone(s) of right foot, initial encounter for closed fracture (principal); F17.200 Nicotine dependence, unspecified, uncomplicated; W20.8XXA Other cause of strike by thrown, projected or falling object, initial encounter
CPT/HCPCS: 73610; 73630; L1902